=== PATIENT | male | born 1965 | race Caucasian/White ===

== ENCOUNTER → 2019-06-22 | Outpatient (CLI) | payer BC ==
--- NOTE | 2019-06-22 15:55 | REP ---
Clinical: Lower abdominal pain. Technique: Axial noncontrast images of the pelvis with coronal and sagittal re-formations. Findings: Visualized portions of the small and large bowel are grossly unremarkable. An appendicolith is identified at the base of the of otherwise normal appendix. Scattered sigmoid diverticula noted without acute diverticulitis. Prostate gland is moderately enlarged measuring approximately 5.5 cm transverse diameter with mass effect on the base of the bladder. No pelvic fluid. No adenopathy. Moderate fat containing right inguinal hernia identified and should be correlated with physical examination and patient's symptoms. Osseous structures are intact and normal. Impression: 1. Moderate fat containing right inguinal hernia should be correlated clinically. 2. Few scattered sigmoid diverticula without acute diverticulitis. 3. Enlarged prostate gland with mild mass effect on the base of bladder. Electronically Signed by Nikolai Peter MD 06/22/2019 03:46 P
== END ==
LOC: M RAD 15:07
PROVIDERS: ATTEND Surgery
DX: K40.90 Unilateral inguinal hernia, without obstruction or gangrene, not specified as recurrent (principal); R10.31 Right lower quadrant pain

== ENCOUNTER 2019-07-04 09:58 | Day surgery (SDC) | payer BC ==
[~2019-07-04] VITALS: Ht 170.2 cm; Wt 74.1 kg
[~2019-07-04 09:58] MED LIST: LR 1,000 ML IV ONE
[2019-07-04] MEDS ORDERED: ceFAZolin 1GM INJ (J0690 PER 500MG) As Ordered ONE (10:07)
[2019-07-04] MEDS ORDERED: BUPIVACAINE LIPOSOME/PF 1.3% 20ML VIAL (13.3MG/ML)(EXPAREL)(C9290 PER1MG) As Ordered ONE (11:57)
[2019-07-04] MEDS ORDERED: BUPIVACAINE/EPIN 0.25% 30 ML VIAL As Ordered ONE (11:57)
[2019-07-04] MEDS ORDERED: LIDOCAINE 2% INJ 100 MG/5 ML SDV (FOR ANES.) As Ordered ONE (12:23)
[2019-07-04] MEDS ORDERED: MIDAZOLAM INJ 2 MG/2 ML VIAL (J2250) As Ordered ONE (12:23)
[2019-07-04] MEDS ORDERED: ROCURONIUM BROMIDE 50 MG/5 ML VIAL As Ordered ONE ×2 (12:23→12:29)
[2019-07-04] MEDS ORDERED: fentaNYL 250 MCG/5 ML INJECTION (J3010) As Ordered ONE (12:23)
[2019-07-04] MEDS ORDERED: PROPOFOL 200 MG/20 ML VIAL As Ordered ONE (12:23)
[2019-07-04] MEDS ORDERED: dexameTHASONE 4 MG/ML 1ML VIAL (J1100) As Ordered ONE (12:23)
[2019-07-04] MEDS ORDERED: ONDANSETRON 4MG/2ML VIAL (J2405) As Ordered ONE (12:36)
[2019-07-04] MEDS ORDERED: KETOROLAC 60 MG/2 ML VIAL (J1885) As Ordered ONE (12:37)
[2019-07-04] MEDS ORDERED: ceFAZolin 1GM INJ (J0690 PER 500MG) IV ONE (12:59)
[2019-07-04] MEDS ORDERED: SUGAMMADEX SODIUM 500 MG/5 ML VIAL (BRIDION) As Ordered ONE (13:19)
--- NOTE | 2019-07-04 13:42 | RO ---
DATE OF OPERATION: 07/04/2019 PREOPERATIVE DIAGNOSIS: Right inguinal hernia. POSTOPERATIVE DIAGNOSIS: Right inguinal hernia. PROCEDURE: Laparoscopic robotic-assisted right inguinal hernia repair with ProGrip mesh. SURGEON: Felipe Cruz Jr., MD SUPPLY CHAIN ENGINEER: RULA Hoyos (provided instrument exchange, trocar placement, trocar site closure, and mesh placement) ANESTHESIA: General endotracheal anesthesia. ESTIMATED BLOOD LOSS (EBL): Minimal. FLUIDS: Crystalloid. DISPOSITION: The patient was taken to recovery room awake, alert, and hemodynamically stable. DESCRIPTION OF PROCEDURE: Brief operative summary. The patient was taken operating room and was given general anesthesia. After adequate anesthesia and preoperative antibiotics were given, the patient was prepped and draped in the usual sterile fashion. Next, a supraumbilical incision was made with skin knife. Blunt dissection was carried down to fascia. Fascia was entered with Veress needle, insufflated to 15 mm of pressure. A dilating 8 mm trocar was placed under direct visualization. Under direct visualization, two lateral 8 mm trocars were placed. Next, a Trendelenburg position was obtained, and the robot was docked. Next, the peritoneum was taken down on the right-hand side revealing the obvious right inguinal hernia with an indirect component to this. There was also a lipoma on the cord visible during our dissection later on. In any case, the peritoneum was taken down with monopolar cut scissors and blunt and sharp dissection, as well as electrocautery was used to provide the plane, and dissection continued down to Bret's, as well as the backside of pubis. Vessels were visualized, as well as the hernia sac, as well as the lipoma in the cord taken off the coordinate structures. The mesh was placed in the preperitoneal space, and the peritoneum was closed over the top of this using 3-0 running V-Loc. All trocars were removed under direct visualization. 4-0 Vicryl was used to close all incisions. Steri-Strips and a dry sterile dressing. The patient was awakened, extubated, brought to the recovery room awake, alert, and hemodynamically stable. Sponge and needle counts correct times two.
[2019-07-04] MEDS ORDERED: oxyCODONE 5MG TAB As Ordered ONE (13:56)
[2019-07-04] MEDS ORDERED: fentaNYL 100 MCG/2 ML INJECTION (J3010) As Ordered ONE (13:56)
[2019-07-04] MEDS: fentaNYL 100 MCG/2 ML INJECTION (J3010) IV PRN ×4 (14:00→14:20)
[2019-07-04] MEDS ORDERED: LR 1,000 ML IV SCH ×2 (14:00→15:01)
[2019-07-04] MEDS ORDERED: ONDANSETRON 4MG/2ML VIAL (J2405) IV PRN ×2 (14:00→15:01)
[2019-07-04] MEDS: oxyCODONE 5MG TAB PO PRN ×2 (14:00→14:30)
[2019-07-04] MEDS ORDERED: traMADol 50 MG TAB PO PRN (15:01)
[2019-07-04 15:40] VITALS: BP 129/84
--- NOTE | 2019-07-05 10:14 | ECGEPIP ---
[facility] Test Date: 2019-07-04 Pat Name: TASH RHODES Department: Room: - Gender: Male Yard Supervisor: DEMETRIO : 1965 Requested By: DARIA Elizondo Order Number: [id number] Reading MD: Paul Coronel Measurements Intervals [place] Rate: 68 P: 48 AK: 144 QRS: 27 QRSD: 102 T: 13 QT: 411 QTc: 439 Interpretive Statements SINUS RHYTHM WITH SINUS ARRHYTHMIA Comparison tracing not on file Electronically Signed on 07-05-2019 10:14:33 EDT by Paul Coronel
== END 2019-07-04 15:45 | disposition home or self-care (01) ==
LOC: M SDC 09:58
PROVIDERS: ATTEND Surgery
DX: K40.90 Unilateral inguinal hernia, without obstruction or gangrene, not specified as recurrent (principal); F17.210 Nicotine dependence, cigarettes, uncomplicated
CPT/HCPCS: 49650; 93005; C1781; C9290; J0690; J1100; J1885; J2250; J2405; J3010

== ENCOUNTER → 2019-11-14 | Outpatient (REF) | payer BC ==
[2019-11-14 16:40] LABS: BASO # 0.1 10^3/uL (0.0-0.2); BASO % 0.7 % (0.0-1.0); EOS # 0.3 10^3/uL (0.0-0.5); EOS % 3.6 % (0.0-3.0); HEMATOCRIT 43.7 % (42.0-52.0); HEMOGLOBIN 15.4 g/dl (13.5-17.5); LYMPH # 2.9 10^3/uL (1.5-5.0); LYMPH % 32.2 % (24.0-44.0); MEAN CORPUSCULAR HGB CONC 35.2 g/dl (32.0-36.5); MEAN CORPUSCULAR VOLUME 90.9 fl (80.0-96.0); MONO # 1.1 10^3/uL (0.0-0.8); MONO % 11.9 % (0.0-5.0); NEUTROPHILS # 4.6 10^3/uL (1.5-8.5); NEUTROPHILS % 51.3 % (36.0-66.0); PLATELET COUNT, AUTOMATED 278 10^3/uL (150-450); RED BLOOD COUNT 4.81 10^6/uL (4.30-6.10); WHITE BLOOD COUNT 9.1 10^3/uL (4.0-10.0)
[2019-11-14 17:06] LABS: ALBUMIN 3.8 GM/DL (3.2-5.2); ALT/SGPT 108 U/L (12-78); BILIRUBIN,TOTAL 0.5 MG/DL (0.2-1.0); BLOOD UREA NITROGEN 19 MG/DL (7-18); CALCIUM LEVEL 9.3 MG/DL (8.5-10.1); CARBON DIOXIDE LEVEL 29 MEQ/L (21-32); CHLORIDE LEVEL 108 MEQ/L (98-107); CREATININE FOR GFR 0.81 MG/DL (0.70-1.30); GLOMERULAR FILTRATION RATE > 60.0 (>56); GLUCOSE, FASTING 78 MG/DL (70-100); POTASSIUM SERUM 3.8 MEQ/L (3.5-5.1); SODIUM LEVEL 142 MEQ/L (136-145); TOTAL PROTEIN 6.9 GM/DL (6.4-8.2)
[2019-11-15 11:06] LABS: HEPATITIS B SURFACE ANTIBODY NEGATIVE (POSITIVE)
[2019-11-15 11:18] LABS: HEPATITIS B SURFACE ANTIGEN NEGATIVE (NEGATIVE)
[2019-11-15 11:46] LABS: HIV 1&2 SCREEN CENTAUR NEGATIVE (NEGATIVE)
[2019-11-15 11:54] LABS: HEPATITIS C VIRUS ABY INDEX > 11.0 INDEX (<0.8)
== END ==
LOC: M SFHCPLAZ 14:15
PROVIDERS: ATTEND Internal Medicine Infectious Disease
DX: B18.2 Chronic viral hepatitis C (principal)

== ENCOUNTER → 2020-03-18 | Outpatient (REF) | payer BC ==
[2020-03-18 15:44] LABS: ALBUMIN 3.7 GM/DL (3.2-5.2); ALT/SGPT 17 U/L (12-78); BILIRUBIN,TOTAL 0.5 MG/DL (0.2-1.0); BLOOD UREA NITROGEN 12 MG/DL (7-18); CALCIUM LEVEL 9.3 MG/DL (8.5-10.1); CARBON DIOXIDE LEVEL 31 MEQ/L (21-32); CHLORIDE LEVEL 108 MEQ/L (98-107); CREATININE FOR GFR 0.97 MG/DL (0.70-1.30); GLOMERULAR FILTRATION RATE > 60.0 (>56); GLUCOSE, FASTING 82 MG/DL (70-100); POTASSIUM SERUM 4.2 MEQ/L (3.5-5.1); SODIUM LEVEL 144 MEQ/L (136-145); TOTAL PROTEIN 6.8 GM/DL (6.4-8.2)
[2020-03-18 16:34] LABS: HIV 1&2 SCREEN CENTAUR NEGATIVE (NEGATIVE)
== END ==
LOC: M SFHCPLAZ 12:52
PROVIDERS: ATTEND Internal Medicine Infectious Disease
DX: B18.2 Chronic viral hepatitis C (principal); Z72.53 High risk bisexual behavior